=== PATIENT | female | born 1940 | race Caucasian/White ===

== ENCOUNTER 2024-02-20 07:41 | Inpatient (IN) | payer OTHER ==
[2024-02-20] MEDS ORDERED: ACETAMINOPHEN INJECTION 100 ML IVPB ONE (08:25)
[2024-02-20] MEDS ORDERED: ONDANSETRON 4 MG/2 ML VIAL ONE (08:25)
[2024-02-20 08:29] LABS: BASO % 0.6 % (0-2.0); EOS % 1.8 % (0-4.5); HEMATOCRIT 39.5 % (32.4-45.2); HEMOGLOBIN 13.1 GM/dL (10.7-15.3); LYMPH % 14.3 % (8-40); MCH 30.9 pg (25.7-33.7); MCHC 33.2 g/dl (32.0-36.0); MEAN CELL VOLUME 93.2 fl (80-96); MEAN PLT VOLUME 8.2 fl (7.5-11.1); MONO % 6.7 % (3.8-10.2); NEUT % 76.6 % (42.8-82.8); PLATELET COUNT 450 10^3/uL (134-434); RBC 4.24 M/mm3 (3.60-5.2); RDW 14.7 % (11.6-15.6)
[2024-02-20 08:35] LABS: INR 1.3 (0.83-1.09)
[2024-02-20 08:39] LABS: ACTIVATED PTT 36.3 SECONDS (25.2-36.5)
[2024-02-20 08:46] LABS: POTASSIUM 3.8 mmol/L (3.5-5.1)
[2024-02-20 08:48] LABS: CALCIUM 9.4 mg/dL (8.5-10.1)
[2024-02-20 08:49] LABS: ALBUMIN 3.4 g/dl (3.4-5.0); BLOOD UREA NITROGEN 11.7 mg/dL (7-18)
[2024-02-20 08:52] LABS: CREATININE 0.6 mg/dL (0.55-1.3)
[2024-02-20 08:53] LABS: TOT PROT 7.2 g/dl (6.4-8.2)
[2024-02-20] MEDS: ONDANSETRON 4 MG/2 ML VIAL IVPUSH ONE (08:53)
[2024-02-20] MEDS: SODIUM CHLORIDE 0.9% 500 ML INFUS.BAG IV ONE (08:55)
[2024-02-20] MEDS: ACETAMINOPHEN 1000 MG/100 ML BAG IVPB ONE (08:55)
[2024-02-20 08:58] LABS: PH,URINE 6.5 (5.0-8.0); URINE APPEARANCE CLEAR; URINE BILIRUBIN NEGATIVE (NEGATIVE); URINE COLOR YELLOW; URINE GLUCOSE (UA) TRACE (NEGATIVE); URINE KETONE 1+ (NEGATIVE); URINE LEUK ESTERASE NEGATIVE (NEGATIVE); URINE NITRITE NEGATIVE (NEGATIVE); URINE PROTEIN TRACE (NEGATIVE)
[2024-02-20] MEDS: morphine SULFATE 4 MG/ML VIAL IVPUSH ONE (11:10)
[2024-02-20 12:23] LABS: POTASSIUM 3.7 mmol/L (3.5-5.1)
[2024-02-20 12:25] LABS: CALCIUM 8.8 mg/dL (8.5-10.1)
[2024-02-20 12:26] LABS: ALBUMIN 3.4 g/dl (3.4-5.0); BLOOD UREA NITROGEN 9.6 mg/dL (7-18)
[2024-02-20 12:29] LABS: CREATININE 0.6 mg/dL (0.55-1.3)
[2024-02-20 12:31] LABS: TOT PROT 7.4 g/dl (6.4-8.2)
[2024-02-20] MEDS ORDERED: AZITHROMYCIN IVPB 500 MG/250 ML BAG IVPB ONE (14:28)
[2024-02-20] MEDS: AZITHROMYCIN IVPB 500 MG in DEXTROSE 5%-WATER - 250 ML IVPB ONE (14:35)
[2024-02-20] MEDS ORDERED: CEFTRIAXONE 1 GM/50 ML BAG ONE (14:55)
[2024-02-20] MEDS: CEFTRIAXONE 1 GM in DEXTROSE 5%-WATER - 100 ML IVPB ONE (14:59)
[2024-02-20] MEDS: SODIUM CHLORIDE 1,000 ML IV SCH (18:00)
[2024-02-20] MEDS: metoPROLOL SUCCINATE 25 MG TAB.SR.24H (FP) PO SCH (18:01)
[2024-02-20] MEDS: ACETAMINOPHEN 325 MG TABLET (FP) PO PRN (18:01)
[2024-02-20 20:20] VITALS: BMI 19.5
[2024-02-21] MEDS: KETOROLAC TROMETHAMINE 30 MG/1 ML VIAL IM ONE (00:47)
[2024-02-21] MEDS: KETOROLAC TROMETHAMINE 30 MG/1 ML VIAL IVPUSH ONE (00:53)
[2024-02-21] MEDS ORDERED: ACETAMINOPHEN 325 MG TABLET (FP) PO PRN (08:04)
[2024-02-21 09:02] LABS: BASO % 0.5 % (0-2.0); EOS % 1.2 % (0-4.5); HEMATOCRIT 38.8 % (32.4-45.2); HEMOGLOBIN 12.6 GM/dL (10.7-15.3); LYMPH % 13.1 % (8-40); MCH 30.2 pg (25.7-33.7); MCHC 32.6 g/dl (32.0-36.0); MEAN CELL VOLUME 92.9 fl (80-96); MEAN PLT VOLUME 8.4 fl (7.5-11.1); MONO % 10.6 % (3.8-10.2); NEUT % 74.6 % (42.8-82.8); PLATELET COUNT 436 10^3/uL (134-434); RBC 4.17 M/mm3 (3.60-5.2); RDW 14.4 % (11.6-15.6); WHITE BLOOD COUNT 9.6 K/mm3 (4.0-10.0)
[2024-02-21 09:20] LABS: POTASSIUM 3.9 mmol/L (3.5-5.1)
[2024-02-21 09:27] LABS: CALCIUM 9.1 mg/dL (8.5-10.1)
[2024-02-21 09:28] LABS: ALBUMIN 2.9 g/dl (3.4-5.0); BLOOD UREA NITROGEN 7.4 mg/dL (7-18)
[2024-02-21 09:30] LABS: CREATININE 0.5 mg/dL (0.55-1.3)
[2024-02-21 09:32] LABS: TOT PROT 6.3 g/dl (6.4-8.2)
[2024-02-21] MEDS ORDERED: CEFTRIAXONE 1 GM in DEXTROSE 5%-WATER - 50 ML IVPB SCH (09:48)
[2024-02-21] MEDS: AZITHROMYCIN IVPB 500 MG/250 ML BAG IVPB SCH (09:58)
[2024-02-21] MEDS: CEFTRIAXONE 1,000 GM in DEXTROSE 5%-WATER - 50 ML IVPB SCH (11:47)
[2024-02-21] MEDS: LIDOCAINE 4% PATCH TP SCH (12:45)
[2024-02-21] MEDS: metoPROLOL SUCCINATE 25 MG TAB.SR.24H (FP) PO SCH (21:08)
[2024-02-21] MEDS: LIDOCAINE PATCH REMOVAL MC SCH (21:08)
[2024-02-22] MEDS: hydrOXYzine HCL 50 MG/ML VIAL IM ONE (02:15)
[2024-02-22] MEDS: metoPROLOL SUCCINATE 25 MG TAB.SR.24H (FP) PO SCH (10:00)
[2024-02-22] MEDS: MEMANTINE HCL 10 MG TABLET (FP) PO SCH (10:00)
[2024-02-22 10:11] LABS: HEMOGLOBIN 12.3 GM/dL (10.7-15.3); MCH 30.8 pg (25.7-33.7); MCHC 33.2 g/dl (32.0-36.0); MEAN CELL VOLUME 92.9 fl (80-96); MEAN PLT VOLUME 8.5 fl (7.5-11.1); PLATELET COUNT 410 10^3/uL (134-434); RBC 3.99 M/mm3 (3.60-5.2); RDW 14.2 % (11.6-15.6); WHITE BLOOD COUNT 8.8 K/mm3 (4.0-10.0)
[2024-02-22 10:28] LABS: POTASSIUM 3.8 mmol/L (3.5-5.1)
[2024-02-22 10:39] LABS: CALCIUM 8.6 mg/dL (8.5-10.1)
[2024-02-22 10:40] LABS: ALBUMIN 2.7 g/dl (3.4-5.0)
[2024-02-22 10:43] LABS: BILIRUBIN,TOTAL 1.1 mg/dL (0.2-1); CREATININE 0.4 mg/dL (0.55-1.3); TOT PROT 5.9 g/dl (6.4-8.2)
[2024-02-22] MEDS ORDERED: QUEtiapine FUMARATE 25 MG TABLET PO SCH (14:30)
[2024-02-22] MEDS: QUEtiapine FUMARATE 25 MG TABLET PO SCH (14:41)
[2024-02-22] MEDS: ACETAMINOPHEN 325 MG TABLET (FP) PO SCH (21:19)
[2024-02-23 10:12] LABS: HEMATOCRIT 39.9 % (32.4-45.2); HEMOGLOBIN 12.9 GM/dL (10.7-15.3); MCH 30.3 pg (25.7-33.7); MCHC 32.3 g/dl (32.0-36.0); MEAN CELL VOLUME 93.7 fl (80-96); MEAN PLT VOLUME 8.5 fl (7.5-11.1); PLATELET COUNT 368 10^3/uL (134-434); RBC 4.25 M/mm3 (3.60-5.2); RDW 14.4 % (11.6-15.6); WHITE BLOOD COUNT 7.4 K/mm3 (4.0-10.0)
[2024-02-23] MEDS: QUEtiapine FUMARATE 25 MG TABLET PO SCH (10:30)
[2024-02-23] MEDS: MULTIVITAMINS (DAILY MVI) TABLET (FP) PO SCH (10:30)
[2024-02-23 10:33] LABS: POTASSIUM 4.1 mmol/L (3.5-5.1)
[2024-02-23 10:50] LABS: CALCIUM 8.9 mg/dL (8.5-10.1)
[2024-02-23 10:51] LABS: ALBUMIN 2.5 g/dl (3.4-5.0); BLOOD UREA NITROGEN 12.9 mg/dL (7-18)
[2024-02-23 10:54] LABS: CREATININE 0.5 mg/dL (0.55-1.3)
[2024-02-23 10:56] LABS: BILIRUBIN,TOTAL 0.9 mg/dL (0.2-1); TOT PROT 5.8 g/dl (6.4-8.2)
[2024-02-24] MEDS: ASPIRIN COATED 81 MG TABLET.EC PO SCH (09:50)
[2024-02-24 17:02] VITALS: RESP 18
[2024-02-25] MEDS: BISACODYL 10 MG SUPP.RECT PR ONE (14:23)
[2024-02-25 21:03] VITALS: BP 110/68; PULSE 85; TEMP 98.2
== END 2024-02-25 23:35 | DRG 566 ==
LOC: JER 07:41 → JERBED 09:28 → J6S 16:38 → OBSVTOIN 02-22 10:29
PROVIDERS: ADMIT Internal Medicine; ATTEND Internal Medicine
DX: M25.462 Effusion, left knee (principal); I48.91 Unspecified atrial fibrillation; Z79.01 Long term (current) use of anticoagulants; F03.90 Unspecified dementia, unspecified severity, without behavioral disturbance, psychotic disturbance, mood disturbance, and anxiety; D75.839 Thrombocytosis, unspecified; R41.0 Disorientation, unspecified; W19.XXXA Unspecified fall, initial encounter; Y93.89 Activity, other specified; Y92.89 Other specified places as the place of occurrence of the external cause; Y99.8 Other external cause status
CPT/HCPCS: 0241U-QW; 36415; 70450-TC; 71045-TC-FY; 71260-TC; 72125-TC; 72170-TC-FY; 73521-TC-FY; 73552-TC-LT-FY; 73562-TC-LT-FY; 73590-TC-LT-FY; 73610-TC-LT-FY; 73701-TC-RT; 76882-TC-RT-FY; 80053; 81003; 82607; 82746; 84443; 84484; 85025; 85027; 85610; 85651; 85730; 86780; 87086; 87899; 93005; 93010; 93306-TC; 97116-GP; 97162-GP; 99285-25; G0378; J0131; Q9967